=== PATIENT | male | born 1985 | race African-American/Black ===

== ENCOUNTER 2017-10-24 14:21 | Emergency (ER) | payer OTHER, BC ==
[2017-10-24 14:34] VITALS: BP 133/81; PULSE 103; RESP 18; TEMP 98.2; O2SAT 100
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
== END 2017-10-24 15:30 | disposition home or self-care (01) ==
DX: S60.511A Abrasion of right hand, initial encounter (principal); W22.8XXA Striking against or struck by other objects, initial encounter

== ENCOUNTER 2018-07-28 16:38 | Emergency (ER) | payer BC, OTHER ==
[2018-07-28 16:45] VITALS: BP 134/98
--- NOTE | 2018-07-28 17:09 | EDPHY ---
H & P Stated Complaint: lac to r index finger /broke glass in swat training Time Seen by Provider: 07/28/18 17:05 HPI/ROS: HPI: This is a 32-year-old male who presents with Chief Complaint: lac to r index finger /broke glass in swat training Location: Right index finger anterior aspect Quality: Laceration Duration: Prior to arrival Signs and Symptoms: + bleeding, no radiation, no numbness, no weakness, no tingling, no incontinence, no decreased range of motion, no swelling, no pain, no fever Timing: Acute Severity: Mild Context: Patient is right-hand dominant, works for the [employer], presents with cutting his right index finger on glass during swab training. He reports that he took hammer and used to break the glass of a car window. He was not wearing gloves at the time. He reports that he noted that his right index finger started to bleed with mild pain. He applied direct pressure and the bleeding stopped. He denies any paresthesias, weakness, decreased range of motion. Tetanus is current. Modifying Factors: See above Comment: ROS: A comprehensive 10 system review of systems is otherwise negative aside from elements mentioned in the history of present illness. MEDICAL/SURGICAL/SOCIAL HISTORY: Medical history: Generally healthy. Does not take any regular medications. Surgical history: Denies Social history: Employed. CONSTITUTIONAL: Athletic build, cooperative, adult male, awake and alert, no obvious distress HEENT: Atraumatic and normocephalic. NECK: supple EXTREMITIES: 2/2 pulses, strength 5/5, right index finger anterior aspect shows linear incision over the PIP joint, simple, superficial-no active bleeding DIP/PIP/MCP flexion/extension intact with good light touch sensation. Intact 2 point discrimination. no deformities, no clubbing, no cyanosis or edema. NEUROLOGICAL: no focal neuro deficits. GCS 15. SKIN: Warm and dry, no erythema. no rash. Good capillary refill. Source: Patient Exam Limitations: No limitations - Personal History Current Tetanus Diphtheria and Acellular Pertussis (TDAP): Yes - Medical/Surgical History Hx Asthma: No Hx Chronic Respiratory Disease: No Hx Diabetes: No Hx Cardiac Disease: No Hx Renal Disease: No Hx Cirrhosis: No Hx Alcoholism: No Hx HIV/AIDS: No Hx Splenectomy or Spleen Trauma: No Other PMH: Denies - Social History Smoking Status: Never smoked Constitutional: Initial Vital Signs Temperature (C) 36.8 C 07/28/18 16:43 Heart Rate 88 07/28/18 16:43 Respiratory Rate 17 07/28/18 16:43 Blood Pressure 134/98 H 07/28/18 16:43 O2 Sat (%) 93 07/28/18 16:43 O2 Delivery Mode Room Air Allergies/Adverse Reactions: No Known Allergies Allergy (Verified 07/28/18 16:41) Home Medications: Medication Instructions Recorded NK [No Known Home Meds] 07/28/18 Medical Decision Making Procedures: Procedure: Laceration repair. Verbal consent was obtained from the patient. The 2 cm, linear, simple laceration on the right index finger was anesthetized in the usual fashion using 3 mL of 1% lidocaine. The wound was irrigated, draped and explored to its base with a gloved finger. There were no deep structures involved. No tendon injury was identified. The wound was repaired with #5, 5 0 Prolene. The procedure was performed by myself. ED Course/Re-evaluation: Vital signs reviewed and stable. Tetanus is current. Local anesthesia given, copiously irrigated, laceration repair Clean sterile dressing applied Verbal and written wound care instructions provided. No signs of neurovascular compromise/tenting of skin/compartment syndrome/ extremities and joints examined above and below area of concern and are neurovascularly intact/tendon injury. This patient was seen under the supervision of my secondary supervising physician. I evaluated care for this patient independently. Discussed this patient with Dr. Kelsey. Differential Diagnosis: Differential diagnosis includes but is not limited to laceration, nerve injury, tendon injury, foreign body. Departure - Departure Disposition: Home, Routine, Self-Care Clinical Impression: Laceration of right index finger without foreign body without damage to nail Qualifiers: Encounter type: initial encounter Qualified Code(s): S61.210A - Laceration without foreign body of right index finger without damage to nail, initial encounter Condition: Good Instructions: Care For Your Stitches (ED), Laceration (ED) Additional Instructions: Keep the dressing dry and in place for 48 hours. After 48 hours, you may remove the dressing; wash the site daily with mild soap and water; then pat dry and keep covered with clean sterile dressing until fully healed. Take Tylenol 650 mg every 4 hours and/or Ibuprofen 600 mg every 8 hours with food as needed for pain. Wound Care Follow-Up: Removal of sutures in [10] days. Suture removal is complimentary in uncomplicated cases. Infection or abnormal findings would require reevaluation by the MD. In that case, you may be billed. Referrals: [facility],. [Clinic] - As per Instructions
== END 2018-07-28 18:10 | disposition home or self-care (01) ==
PROC: 0HQFXZZ Repair Right Hand Skin, External Approach (ICD-10-PCS; principal; 2018-07-28)
DX: S61.210A Laceration without foreign body of right index finger without damage to nail, initial encounter (principal); W25.XXXA Contact with sharp glass, initial encounter; Y99.0 Civilian activity done for income or pay; Y93.89 Activity, other specified; Y92.9 Unspecified place or not applicable